=== PATIENT | female | born 1985 | race Caucasian/White ===

== ENCOUNTER 2016-04-12 00:48 | Inpatient (IN) | payer MEDICAID ==
[~2016-04-12] VITALS: Ht 152.4 cm; Wt 68.3 kg
[~2016-04-12 00:48] MED LIST: IBUP-1547 PO
[2016-04-12] MEDS ORDERED: MORPHINE SULFATE 4 MG/ML SYRINGE ONE (01:13)
[2016-04-12] MEDS ORDERED: ONDANSETRON HCL 4 MG/2 ML VIAL ONE (01:13)
[2016-04-12] MEDS ORDERED: ONDANSETRON HCL 4 MG/2 ML VIAL IVP ONE (01:15)
[2016-04-12] MEDS ORDERED: MORPHINE SULFATE 4 MG/ML SYRINGE IVP ONE ×2 (01:15→02:15)
[2016-04-12] MEDS ORDERED: SODIUM CHLORIDE 0.9% 1,000 ML IV ONE ×2 (01:15→02:30)
[2016-04-12 01:37] LABS: BASOPHILS # (AUTO) 0.03 K/uL (0.00-0.20); BASOPHILS % (AUTO) 0.3 % (0.0-2.0); EOSINOPHILS # (AUTO) 0.37 K/uL (0.00-0.70); HEMOGLOBIN 11.9 g/dL (12.0-16.0); LYMPHOCYTES # (AUTO) 1.6 K/uL (1.0-4.8); LYMPHOCYTES % (AUTO) 15.3 % (22.0-44.0); MEAN CORPUSCULAR HEMOGLOBIN 22.6 pg (26.0-34.0); MEAN CORPUSCULAR HGB CONC 32.3 G/dL (31.0-37.0); MEAN CORPUSCULAR VOLUME 70 fL (80-100); MONOCYTES # (AUTO) 0.4 K/uL (0.1-1.0); NEUTROPHILS % (AUTO) 76.8 % (40.0-70.0); PLATELET COUNT (AUTO) 260 K/uL (150-450); RED BLOOD CELL COUNT(AUTO) 5.28 MIL/uL (4.00-5.20); RED CELL DISTRIBUTION WIDTH 16.2 % (11.5-14.5); WHITE BLOOD COUNT (AUTO) 10.4 K/uL (4.5-11.0)
[2016-04-12 01:46] LABS: ANION GAP 13 mmol/L (8-16); CALCIUM, TOTAL 8.2 mg/dL (8.8-10.5); CARBON DIOXIDE 24 mmol/L (22-29); CHLORIDE 104 mmol/L (98-107); CREATININE 0.65 mg/dL (0.60-1.30); GLOMERULAR FILTR. RATE CALC > 60 mL/min (>60); POTASSIUM 3.5 mmol/L (3.5-5.1); SODIUM SERUM 141 mmol/L (136-145); UREA NITROGEN, BLOOD 8 mg/dL (7-18)
[2016-04-12 01:50] LABS: APPEARANCE,URINE CLEAR (CLEAR); GLUCOSE, URINE (UA) NEGATIVE (NEGATIVE); KETONES,URINE NEGATIVE (NEGATIVE); LEUKOCYTE ESTERASE ,URINE NEGATIVE (NEGATIVE); OCCULT BLOOD,URINE NEGATIVE (NEGATIVE); PH,URINE 6.5 (5.0-8.0); PROTEIN,URINE NEGATIVE (NEGATIVE)
[2016-04-12 01:52] LABS: ALANINE AMINOTRANSFERASE 19 U/L (12-78); ALBUMIN 3.9 g/dL (3.4-5.0); ASPARTATE AMINOTRANSFERASE 17 U/L (15-37); BILIRUBIN,TOTAL 0.3 mg/dL (0.1-1.0); TOTAL PROTEIN, SERUM 8.2 g/dL (6.4-8.2)
[2016-04-12 01:53] LABS: ADD UA MICROSCOPIC NO
[2016-04-12 02:02] LABS: RBC MORPHOLOGY COMMENT ABNORMAL RBC MORPH
[2016-04-12] MEDS ORDERED: IOVERSOL 350 MG/ML 100 ML VIAL ONE (02:15)
[2016-04-12] MEDS ORDERED: PANTOPRAZOLE SODIUM 40 MG/VIAL IVP ONE (02:15)
[2016-04-12] MEDS ORDERED: SODIUM CHLORIDE 0.9% 100 ML ONE (02:16)
[2016-04-12] MEDS ORDERED: DONNATAL/LIDOCAINE/MAALOX 55 ML BOTTLE PO ONE (02:30)
[2016-04-12] MEDS ORDERED: HYDROmorphone 2 MG/ML SYRINGE IVP ONE (02:30)
[2016-04-12 09:10] VITALS: BP 95/59
[2016-04-12] MEDS ORDERED: MECLIZINE HCL 12.5 MG TABLET PO PRN (10:30)
[2016-04-12] MEDS ORDERED: OxyCODONE HCL/ACETAMINOPHEN 5-325 MG TABLET PO PRN ×2 (11:30→12:00)
[2016-04-12] MEDS ORDERED: ACETAMINOPHEN 650 MG/20.3 ML SOLUTION UDCUP PO PRN (11:30)
[2016-04-12] MEDS ORDERED: SODIUM CHLORIDE 0.9% 250 ML IV ONE ×2 (11:30→18:30)
[2016-04-12 12:00] VITALS: BP 88/58
[2016-04-12] MEDS ORDERED: 0.9% SODIUM CHLORIDE 10 ML SYRINGE IVP PRN (12:00)
[2016-04-12] MEDS ORDERED: ONDANSETRON HCL 4 MG/2 ML VIAL IVP PRN (12:00)
[2016-04-12] MEDS ORDERED: ACETAMINOPHEN 325 MG TABLET PO PRN (12:15)
[2016-04-12] MEDS: DOCUSATE SODIUM 100 MG CAPSULE PO SCH ×2 (12:44→21:00)
[2016-04-12] MEDS: PANTOPRAZOLE SODIUM 40 MG/VIAL IVP SCH (12:45)
[2016-04-12 15:14] VITALS: BP 89/52
[2016-04-12] MEDS: SODIUM CHLORIDE 0.9% 1,000 ML IV SCH ×2 (15:21→21:26)
[2016-04-12] MEDS: OxyCODONE HCL/ACETAMINOPHEN 5-325 MG TABLET PO PRN (18:19)
[2016-04-12] MEDS ORDERED: INFLUENZA VIRUS VACCINE QVS 2016-17 (3YR+)/PF 60 MCG/0.5 ML SYRINGE IM ONE (18:45)
[2016-04-12] MEDS ORDERED: MEBROFENIN TC99M/MCL ISOTOPE 1 EA INJ INJ ONE (19:20)
[2016-04-12 20:44] VITALS: BP 100/55
[2016-04-12] MEDS ORDERED: SUMAtriptan SUCCINATE 6 MG/0.5 ML VIAL SQ PRN (21:15)
[2016-04-12 23:45] VITALS: BP 99/54
[2016-04-13 04:00] VITALS: BP 100/61
[2016-04-13] MEDS: SODIUM CHLORIDE 0.9% 1,000 ML IV SCH ×2 (06:11→21:00)
[2016-04-13 06:45] LABS: BASOPHILS % (AUTO) 0.5 % (0.0-2.0); HEMATOCRIT 30.3 % (36-46); HEMOGLOBIN 9.6 g/dL (12.0-16.0); LYMPHOCYTES # (AUTO) 2.2 K/uL (1.0-4.8); LYMPHOCYTES % (AUTO) 34.1 % (22.0-44.0); MEAN CORPUSCULAR HEMOGLOBIN 22.5 pg (26.0-34.0); MEAN CORPUSCULAR HGB CONC 31.7 G/dL (31.0-37.0); MEAN CORPUSCULAR VOLUME 71 fL (80-100); MONOCYTES # (AUTO) 0.5 K/uL (0.1-1.0); MONOCYTES % (AUTO) 7.7 % (2.0-9.0); NEUTROPHILS # (AUTO) 3.6 K/uL (1.8-7.7); NEUTROPHILS % (AUTO) 54.7 % (40.0-70.0); PLATELET COUNT (AUTO) 219 K/uL (150-450); RED BLOOD CELL COUNT(AUTO) 4.26 MIL/uL (4.00-5.20); RED CELL DISTRIBUTION WIDTH 15.5 % (11.5-14.5); WHITE BLOOD COUNT (AUTO) 6.6 K/uL (4.5-11.0)
[2016-04-13 06:51] LABS: ANION GAP 8 mmol/L (8-16); CARBON DIOXIDE 26 mmol/L (22-29); CHLORIDE 107 mmol/L (98-107); CREATININE 0.69 mg/dL (0.60-1.30); GLOMERULAR FILTR. RATE CALC > 60 mL/min (>60); POTASSIUM 3.2 mmol/L (3.5-5.1); SODIUM SERUM 141 mmol/L (136-145); UREA NITROGEN, BLOOD 7 mg/dL (7-18)
[2016-04-13 07:29] LABS: RBC MORPHOLOGY COMMENT ABNORMAL RBC MORPH
[2016-04-13 08:06] VITALS: BP 98/60
[2016-04-13] MEDS: DOCUSATE SODIUM 100 MG CAPSULE PO SCH ×2 (09:00→21:16)
[2016-04-13] MEDS: PANTOPRAZOLE SODIUM 40 MG/VIAL IVP SCH (09:05)
[2016-04-13] MEDS ORDERED: SODIUM CHLORIDE 0.9% 1,000 ML IV ONE ×2 (11:49→12:00)
[2016-04-13 11:59] VITALS: BP 100/62
[2016-04-13] MEDS ORDERED: MEPERIDINE-PF 25 MG/ML SYRINGE IVP PRN (13:45)
[2016-04-13] MEDS ORDERED: FentaNYL CITRATE-PF 100 MCG/2 ML VIAL IVP PRN (13:45)
[2016-04-13] MEDS ORDERED: HYDROmorphone 2 MG/ML SYRINGE IVP PRN (13:45)
[2016-04-13 16:00] VITALS: BP 103/71
[2016-04-13 20:37] VITALS: BP 100/59
[2016-04-13] MEDS: OxyCODONE HCL/ACETAMINOPHEN 5-325 MG TABLET PO PRN (21:16)
[2016-04-14 00:15] VITALS: BP 92/50
[2016-04-14 04:00] VITALS: BP 93/55
[2016-04-14 08:00] VITALS: BP 100/73
[2016-04-14] MEDS: PANTOPRAZOLE SODIUM 40 MG/VIAL IVP SCH (09:14)
[2016-04-14] MEDS: DOCUSATE SODIUM 100 MG CAPSULE PO SCH (09:14)
[2016-04-14 12:00] VITALS: BP 90/53
[2016-04-14] MEDS ORDERED: PANT40TA25 PO (12:35)
[2016-04-14] MEDS ORDERED: ONDA4 PO (12:36)
[2016-04-14] MEDS ORDERED: MECL12.585 PO (12:36)
[2016-04-14] MEDS ORDERED: INFLUENZA VIRUS VACCINE QVS 2016-17 (3YR+)/PF 60 MCG/0.5 ML SYRINGE IM ONE (13:15)
[2016-04-14] MEDS ORDERED: PROPOFOL 1% 20 ML VIAL IVP ONE (13:49)
[2016-04-14] MEDS ORDERED: LIDOCAINE HCL/PF 2% 5 ML VIAL INJ ONE (13:49)
[2016-04-14] MEDS ORDERED: 0.9% SODIUM CHLORIDE 10 ML VIAL IV ONE (13:49)
== END 2016-04-14 13:50 | disposition home or self-care (01) | DRG 241 ==
LOC: EMS 00:51 → MERGE 05:45 → 6N 05:45
PROVIDERS: ADMIT Internal Medicine; ATTEND Internal Medicine
PROC: 0DB68ZX Excision of Stomach, Via Natural or Artificial Opening Endoscopic, Diagnostic (ICD-10-PCS; principal; 2016-04-13 13:00)
PROC: 3E0234Z Introduction of Serum, Toxoid and Vaccine into Muscle, Percutaneous Approach (ICD-10-PCS; 2016-04-14)
DX: K29.70 Gastritis, unspecified, without bleeding (principal); K83.8 Other specified diseases of biliary tract; D64.9 Anemia, unspecified; R10.9 Unspecified abdominal pain; K21.9 Gastro-esophageal reflux disease without esophagitis; Z98.890 Other specified postprocedural states; Z98.51 Tubal ligation status; Z23 Encounter for immunization
CPT/HCPCS: 74177; 76705; 78226; 88305; 88312; 90471; 96374; 96375; 96376; 99285; A9537; C9113; J1170; J2270; J2405; J2704; J3490; J7030; J7050

== ENCOUNTER 2016-07-25 07:41 | Inpatient (IN) | payer MEDICAID ==
[~2016-07-25] VITALS: Ht 160 cm; Wt 81.8 kg
[~2016-07-25 07:41] MED LIST changes: +MECL12.585 PO; +ONDA4 PO; +PANT40TA25 PO
[2016-07-25 08:05] LABS: BASOPHILS # (AUTO) 0.06 K/uL (0.00-0.20); BASOPHILS % (AUTO) 0.3 % (0.0-2.0); EOSINOPHILS # (AUTO) 0.19 K/uL (0.00-0.70); EOSINOPHILS % (AUTO) 0.98 % (1.0-6.0); HEMATOCRIT 35.9 % (36-46); HEMOGLOBIN 11.1 g/dL (12.0-16.0); LYMPHOCYTES # (AUTO) 1.8 K/uL (1.0-4.8); LYMPHOCYTES % (AUTO) 9.4 % (22.0-44.0); MEAN CORPUSCULAR HEMOGLOBIN 21.4 pg (26.0-34.0); MEAN CORPUSCULAR VOLUME 69 fL (80-100); MONOCYTES # (AUTO) 0.7 K/uL (0.1-1.0); MONOCYTES % (AUTO) 3.6 % (2.0-9.0); NEUTROPHILS # (AUTO) 16.5 K/uL (1.8-7.7); NEUTROPHILS % (AUTO) 85.7 % (40.0-70.0); PLATELET COUNT (AUTO) 284 K/uL (150-450); RBC MORPHOLOGY COMMENT ABNORMAL RBC MORPH; RED BLOOD CELL COUNT(AUTO) 5.21 MIL/uL (4.00-5.20); RED CELL DISTRIBUTION WIDTH 15.8 % (11.5-14.5); WHITE BLOOD COUNT (AUTO) 19.2 K/uL (4.5-11.0)
[2016-07-25 08:11] LABS: ANION GAP 11 mmol/L (8-16); CALCIUM, TOTAL 8.8 mg/dL (8.8-10.5); CARBON DIOXIDE 23 mmol/L (22-29); CHLORIDE 100 mmol/L (98-107); CREATININE 0.64 mg/dL (0.60-1.30); GLOMERULAR FILTR. RATE CALC > 60 mL/min (>60); POTASSIUM 3.5 mmol/L (3.5-5.1); SODIUM SERUM 134 mmol/L (136-145); UREA NITROGEN, BLOOD 10 mg/dL (7-18)
[2016-07-25] MEDS ORDERED: MORPHINE SULFATE 2 MG/ML SYRINGE IVP ONE (08:15)
[2016-07-25] MEDS ORDERED: ONDANSETRON HCL 4 MG/2 ML VIAL IVP ONE (08:15)
[2016-07-25 08:17] LABS: ALANINE AMINOTRANSFERASE 72 U/L (12-78); ALBUMIN 4.1 g/dL (3.4-5.0); ASPARTATE AMINOTRANSFERASE 31 U/L (15-37); BILIRUBIN,TOTAL 0.3 mg/dL (0.1-1.0); TOTAL PROTEIN, SERUM 8.4 g/dL (6.4-8.2)
[2016-07-25] MEDS ORDERED: BARIUM SULFATE 0.1% SUSPENSION 450 ML BOTTLE PO ONE (08:30)
[2016-07-25] MEDS ORDERED: IOVERSOL 350 MG/ML 100 ML VIAL ONE (09:12)
[2016-07-25] MEDS ORDERED: SODIUM CHLORIDE 0.9% 100 ML ONE (09:13)
[2016-07-25 10:13] LABS: APPEARANCE,URINE CLEAR (CLEAR); GLUCOSE, URINE (UA) NEGATIVE (NEGATIVE); KETONES,URINE NEGATIVE (NEGATIVE); LEUKOCYTE ESTERASE ,URINE NEGATIVE (NEGATIVE); OCCULT BLOOD,URINE NEGATIVE (NEGATIVE); PROTEIN,URINE NEGATIVE (NEGATIVE)
[2016-07-25 10:14] LABS: ADD UA MICROSCOPIC NO
[2016-07-25] MEDS ORDERED: HYDROmorphone 2 MG/ML SYRINGE IVP ONE (11:15)
[2016-07-25] MEDS ORDERED: SODIUM CHLORIDE 0.9% 1,000 ML IV ONE ×3 (11:15→13:26)
[2016-07-25] MEDS ORDERED: PIPERACILLIN/TAZO 3.375 GM/D5W 50 ML IV ONE (11:15)
[2016-07-25] MEDS ORDERED: PROMETHAZINE HCL 25 MG/ML VIAL IM ONE (11:15)
[2016-07-25] MEDS ORDERED: ZOLPIDEM TARTRATE 5 MG TABLET PO PRN (11:30)
[2016-07-25] MEDS ORDERED: MAGNESIUM HYDROXIDE SUSPENSION 30 ML UDCUP PO PRN (11:30)
[2016-07-25] MEDS ORDERED: MORPHINE SULFATE 2 MG/ML SYRINGE IVP PRN (11:30)
[2016-07-25] MEDS ORDERED: BISACODYL 10 MG RECTAL RECTAL SUPPOSITORY PR PRN (11:30)
[2016-07-25] MEDS ORDERED: HYDROCODONE/ACETAMINOPHEN 5-325 MG TABLET PO PRN (11:30)
[2016-07-25] MEDS ORDERED: CIPROFLOXACIN 400 MG/D5% WATER 200 ML IV ONE (11:30)
[2016-07-25] MEDS ORDERED: ACETAMINOPHEN 325 MG TABLET PO PRN (11:30)
[2016-07-25] MEDS ORDERED: ONDANSETRON HCL 4 MG/2 ML VIAL IVP PRN (11:30)
[2016-07-25] MEDS ORDERED: MetroNIDAZOLE 500 MG/NACL 100 ML IV SCH (13:00)
[2016-07-25 13:10] VITALS: BP 127/68
[2016-07-25] MEDS ORDERED: RINGERS SOLUTION,LACTATED 1,000 ML IV ONE ×4 (13:20→16:28)
[2016-07-25] MEDS ORDERED: BUPIVACAINE 0.25%/EPI 1:200,000/PF 10 ML VIAL ONE (13:26)
[2016-07-25] MEDS ORDERED: ACETAMINOPHEN 1000 MG/ISO-OSM 100 ML IV ONE (15:03)
[2016-07-25] MEDS ORDERED: HEPARIN SODIUM,PORCINE 5,000 UNITS/ML VIAL SQ SCH (16:00)
[2016-07-25] MEDS ORDERED: RINGERS SOLUTION,LACTATED 500 ML IV SCH (16:00)
[2016-07-25] MEDS ORDERED: RINGERS SOLUTION,LACTATED 500 ML IV ONE (16:30)
[2016-07-25 17:25] VITALS: BP 98/62
[2016-07-25 18:06] VITALS: BP 102/66
[2016-07-25 19:48] VITALS: BP 91/47
[2016-07-25] MEDS ORDERED: DOCUSATE SODIUM 100 MG CAPSULE PO SCH (21:00)
[2016-07-25] MEDS ORDERED: DOCU-119 PO (21:41)
[2016-07-25] MEDS ORDERED: HYDR-309 PO ×2 (21:44→21:45)
[2016-07-25] MEDS ORDERED: KETOROLAC TROMETHAMINE 60 MG/2 ML VIAL IM ONE (22:54)
[2016-07-25] MEDS ORDERED: FentaNYL CITRATE-PF 100 MCG/2 ML VIAL IVP ONE (22:54)
[2016-07-25] MEDS ORDERED: DEXAMETHASONE SOD PHOS 4 MG/ML VIAL IVP ONE (22:54)
[2016-07-25] MEDS ORDERED: PROPOFOL 1% 20 ML VIAL IVP ONE (22:54)
[2016-07-25] MEDS ORDERED: SUCCINYLCHOLINE CHLORIDE 20 MG/ML 10 ML VIAL IVP ONE (22:54)
[2016-07-25] MEDS ORDERED: MIDAZOLAM HCL 2 MG/2 ML VIAL IVP ONE (22:54)
[2016-07-25] MEDS ORDERED: LIDOCAINE HCL/PF 2% 5 ML VIAL INJ ONE (22:54)
[2016-07-26] MEDS ORDERED: PANTOPRAZOLE SODIUM 40 MG DR TABLET PO SCH (09:00)
== END 2016-07-25 22:55 | disposition home or self-care (01) | DRG 710 ==
LOC: EMS 07:43 → 6N 11:37
PROVIDERS: ADMIT Internal Medicine; ATTEND Internal Medicine
PROC: 0W9G4ZZ Drainage of Peritoneal Cavity, Percutaneous Endoscopic Approach (ICD-10-PCS; 2016-07-25)
PROC: 0DTJ4ZZ Resection of Appendix, Percutaneous Endoscopic Approach (ICD-10-PCS; principal; 2016-07-25 15:00)
DX: A41.9 Sepsis, unspecified organism (principal); R18.8 Other ascites; K35.80 Unspecified acute appendicitis; F41.9 Anxiety disorder, unspecified; I71.4 Abdominal aortic aneurysm, without rupture; Z79.891 Long term (current) use of opiate analgesic; Z79.1 Long term (current) use of non-steroidal anti-inflammatories (NSAID); Z79.899 Other long term (current) drug therapy; Z98.51 Tubal ligation status; Z98.891 History of uterine scar from previous surgery
CPT/HCPCS: 74177; 88304; 93005; 96365; 99285; J0131; J0330; J0690; J0744; J1100; J1170; J1644; J1885; J2250; J2270; J2405; J2543; J2550; J2704; J3010; J3490; J7030; J7050; J7120

== ENCOUNTER 2016-08-11 14:26 | Emergency (ER) | payer MEDICAID ==
[~2016-08-11] VITALS: Ht 157.5 cm; Wt 77.0 kg
[~2016-08-11 14:26] MED LIST changes: +DOCU-119 PO; +HYDR-309 PO
[2016-08-11 16:16] LABS: APPEARANCE,URINE CLOUDY (CLEAR); GLUCOSE, URINE (UA) NEGATIVE (NEGATIVE); KETONES,URINE NEGATIVE (NEGATIVE); LEUKOCYTE ESTERASE ,URINE MODERATE (NEGATIVE); OCCULT BLOOD,URINE SMALL (NEGATIVE); PH,URINE 7.5 (5.0-8.0); PROTEIN,URINE NEGATIVE (NEGATIVE)
[2016-08-11 16:24] LABS: ADD UA MICROSCOPIC YES
[2016-08-11 16:25] LABS: SQUAMOUS EPITHELIAL CELL,UR Few /LPF (None Seen)
[2016-08-11] MEDS ORDERED: HYDROCODONE/ACETAMINOPHEN 5-325 MG TABLET PO ONE (16:45)
[2016-08-11] MEDS ORDERED: CIPROFLOXACIN HCL 250 MG TABLET PO ONE (16:45)
[2016-08-11] MEDS ORDERED: PHENAZOPYRIDINE HCL 100 MG TABLET PO ONE (16:45)
[2016-08-11 17:23] VITALS: BP 118/70
== END 2016-08-11 17:24 | disposition home or self-care (01) ==
LOC: EMS 14:29
DX: N39.0 Urinary tract infection, site not specified (principal)
CPT/HCPCS: 87086; 99284

== ENCOUNTER 2016-10-12 09:01 | Emergency (ER) | payer MEDICAID ==
[~2016-10-12] VITALS: Ht 152.4 cm; Wt 67.0 kg
[2016-10-12] MEDS ORDERED: IBUPROFEN 600 MG TABLET PO ONE (09:45)
[2016-10-12 10:35] VITALS: BP 109/64
== END 2016-10-12 11:34 | disposition home or self-care (01) ==
LOC: EMS 09:10
DX: S02.2XXA Fracture of nasal bones, initial encounter for closed fracture (principal); S16.1XXA Strain of muscle, fascia and tendon at neck level, initial encounter; R45.6 Violent behavior; F41.9 Anxiety disorder, unspecified; Y04.0XXA Assault by unarmed brawl or fight, initial encounter; Y93.89 Activity, other specified; Y92.89 Other specified places as the place of occurrence of the external cause; Y99.8 Other external cause status
CPT/HCPCS: 70450; 72125; 99284

== ENCOUNTER 2017-04-17 20:22 | Emergency (ER) | payer MEDICAID ==
[~2017-04-17] VITALS: Ht 160 cm; Wt 65.9 kg
[2017-04-17 21:25] LABS: APPEARANCE,URINE CLEAR (CLEAR); BILIRUBIN,URINE NEGATIVE (NEGATIVE); GLUCOSE, URINE (UA) NEGATIVE (NEGATIVE); KETONES,URINE NEGATIVE (NEGATIVE); LEUKOCYTE ESTERASE ,URINE NEGATIVE (NEGATIVE); NITRATE,URINE NEGATIVE (NEGATIVE); OCCULT BLOOD,URINE NEGATIVE (NEGATIVE); PROTEIN,URINE NEGATIVE (NEGATIVE); UROBILINOGEN,URINE 0.2 mg/dL (<=1.0)
[2017-04-17 21:54] LABS: BACTERIA,URINE None Seen /HPF (None Seen); RBC,URINE 0-2 /HPF (0-2); SQUAMOUS EPITHELIAL CELL,UR Moderate /LPF (None Seen); WBC,URINE 0-2 /HPF (0-5)
[2017-04-17] MEDS ORDERED: IPRATROPIUM BROMIDE 0.5 MG/2.5 ML NEB SOLUTION NEB ONE ×2 (22:55→23:00)
[2017-04-17] MEDS ORDERED: ALBUTEROL SULFATE 2.5 MG/0.5 ML NEB SOLUTION NEB ONE (22:55)
[2017-04-17] MEDS ORDERED: ALBUTEROL SULFATE 5 MG/ML 20 ML NEB SOLN [BULK] NEB ONE (23:00)
[2017-04-17] MEDS ORDERED: DEXAMETHASONE SOD PHOS 4 MG/ML 5 ML VIAL IM ONE (23:00)
[2017-04-18 00:23] VITALS: BP 105/58
== END 2017-04-18 00:24 | disposition home or self-care (01) ==
LOC: EMS 20:26
DX: J45.909 Unspecified asthma, uncomplicated (principal)
CPT/HCPCS: 71045; 81001; 84703; 94640; 96372; 99285; J1100; J7611; J7613

== ENCOUNTER 2017-05-23 16:25 | Emergency (ER) | payer MEDICAID ==
[~2017-05-23] VITALS: Ht 170.2 cm; Wt 67.3 kg
[2017-05-23 16:33] VITALS: BP 104/72
[2017-05-23 16:45] LABS: APPEARANCE,URINE CLOUDY (CLEAR); BILIRUBIN,URINE NEGATIVE (NEGATIVE); GLUCOSE, URINE (UA) NEGATIVE (NEGATIVE); KETONES,URINE NEGATIVE (NEGATIVE); LEUKOCYTE ESTERASE ,URINE LARGE (NEGATIVE); NITRATE,URINE NEGATIVE (NEGATIVE); OCCULT BLOOD,URINE MODERATE (NEGATIVE); PH,URINE 7.5 (5.0-8.0); PROTEIN,URINE NEGATIVE (NEGATIVE); UROBILINOGEN,URINE 0.2 mg/dL (<=1.0)
[2017-05-23 16:47] LABS: BACTERIA,URINE Few /HPF (None Seen); SQUAMOUS EPITHELIAL CELL,UR Few /LPF (None Seen); WBC,URINE 51-100 /HPF (0-5)
== END 2017-05-23 17:49 | disposition home or self-care (01) ==
LOC: EMS 16:26
DX: N39.0 Urinary tract infection, site not specified (principal)
CPT/HCPCS: 87086; 99284

== ENCOUNTER 2017-10-30 10:16 | Emergency (ER) | payer MEDICAID ==
[~2017-10-30] VITALS: Ht 157.5 cm; Wt 85.0 kg
[2017-10-30] MEDS ORDERED: IBUPROFEN 600 MG TABLET PO ONE (11:00)
[2017-10-30 11:21] LABS: BASOPHILS % (AUTO) 0.7 % (0.0-2.0); EOSINOPHILS % (AUTO) 3.1 % (1.0-6.0); HEMATOCRIT 31.3 % (36-46); HEMOGLOBIN 9.8 g/dL (12.0-16.0); LYMPHOCYTES % (AUTO) 21.4 % (22.0-44.0); MEAN CORPUSCULAR HEMOGLOBIN 19.7 pg (26.0-34.0); MEAN CORPUSCULAR HGB CONC 31.4 G/dL (31.0-37.0); MEAN CORPUSCULAR VOLUME 63 fL (80-100); MONOCYTES # (AUTO) 0.6 K/uL (0.1-1.0); MONOCYTES % (AUTO) 6.9 % (2.0-9.0); NEUTROPHILS # (AUTO) 6.4 K/uL (1.8-7.7); NEUTROPHILS % (AUTO) 67.9 % (40.0-70.0); PLATELET COUNT (AUTO) 308 K/uL (150-450); RED BLOOD CELL COUNT(AUTO) 4.97 MIL/uL (4.00-5.20)
[2017-10-30 11:29] LABS: ANION GAP 7 mmol/L (8-16); CALCIUM, TOTAL 8.3 mg/dL (8.8-10.5); CARBON DIOXIDE 30 mmol/L (22-29); CHLORIDE 106 mmol/L (98-107); GLOMERULAR FILTR. RATE CALC > 60 mL/min (>60); GLUCOSE,RANDOM 113 mg/dL (70-110); POTASSIUM 3.6 mmol/L (3.5-5.1); SODIUM SERUM 143 mmol/L (136-145); UREA NITROGEN, BLOOD 6 mg/dL (7-18)
[2017-10-30 12:50] VITALS: BP 129/35
== END 2017-10-30 12:59 | disposition home or self-care (01) ==
LOC: EMS 10:17
DX: G44.209 Tension-type headache, unspecified, not intractable (principal); M79.602 Pain in left arm; F41.9 Anxiety disorder, unspecified; Z90.49 Acquired absence of other specified parts of digestive tract
CPT/HCPCS: 93005; 99285

== ENCOUNTER 2018-06-28 22:24 | Emergency (ER) | payer MEDICAID ==
[~2018-06-28] VITALS: Ht 154.9 cm; Wt 82.3 kg
[2018-06-28] MEDS ORDERED: OMEP20 PO (22:30)
[2018-06-29] MEDS ORDERED: PB/HYOSCY/ATR/SCOP/LIDO/MAALOX 55 ML BOTTLE PO ONE
[2018-06-29] MEDS ORDERED: ONDANSETRON HCL 4 MG TABLET PO ONE
[2018-06-29 00:09] LABS: BASOPHILS % (AUTO) 0.7 % (0.0-2.0); EOSINOPHILS % (AUTO) 2.3 % (1.0-6.0); HEMATOCRIT 28.2 % (36-46); HEMOGLOBIN 8.9 g/dL (12.0-16.0); LYMPHOCYTES # (AUTO) 3.1 K/uL (1.0-4.8); MEAN CORPUSCULAR HEMOGLOBIN 19.9 pg (26.0-34.0); MEAN CORPUSCULAR HGB CONC 31.7 G/dL (31.0-37.0); MEAN CORPUSCULAR VOLUME 63 fL (80-100); MONOCYTES # (AUTO) 0.6 K/uL (0.1-1.0); NEUTROPHILS # (AUTO) 4.7 K/uL (1.8-7.7); PLATELET COUNT (AUTO) 301 K/uL (150-450); RED BLOOD CELL COUNT(AUTO) 4.48 MIL/uL (4.00-5.20); RED CELL DISTRIBUTION WIDTH 17.3 % (11.5-14.5)
[2018-06-29 00:19] LABS: ANION GAP 5 mmol/L (8-16); CALCIUM, TOTAL 8.4 mg/dL (8.8-10.5); CARBON DIOXIDE 30 mmol/L (22-29); CHLORIDE 105 mmol/L (98-107); CREATININE 0.67 mg/dL (0.60-1.30); GLOMERULAR FILTR. RATE CALC > 60 mL/min (>60); GLUCOSE,RANDOM 100 mg/dL (70-110); POTASSIUM 4.2 mmol/L (3.5-5.1); SODIUM SERUM 140 mmol/L (136-145); UREA NITROGEN, BLOOD 9 mg/dL (7-18)
[2018-06-29 00:27] LABS: APPEARANCE,URINE CLOUDY (CLEAR); BILIRUBIN,URINE NEGATIVE (NEGATIVE); GLUCOSE, URINE (UA) NEGATIVE (NEGATIVE); KETONES,URINE NEGATIVE (NEGATIVE); LEUKOCYTE ESTERASE ,URINE SMALL (NEGATIVE); NITRATE,URINE NEGATIVE (NEGATIVE); OCCULT BLOOD,URINE MODERATE (NEGATIVE); PH,URINE 6.5 (5.0-8.0); PROTEIN,URINE NEGATIVE (NEGATIVE); UROBILINOGEN,URINE 0.2 mg/dL (<=1.0)
[2018-06-29 00:29] LABS: ALANINE AMINOTRANSFERASE 17 U/L (12-78); ALBUMIN 3.3 g/dL (3.4-5.0); ALKALINE PHOSPHATASE 90 U/L (46-116); ASPARTATE AMINOTRANSFERASE 14 U/L (15-37); BILIRUBIN,TOTAL 0.1 mg/dL (0.1-1.0); HCG,QUANTITATIVE < 1 mIU/mL (0-6); LIPASE 187 U/L (73-393); TOTAL PROTEIN, SERUM 7.1 g/dL (6.4-8.2)
[2018-06-29 00:36] LABS: BACTERIA,URINE None Seen /HPF (None Seen); SQUAMOUS EPITHELIAL CELL,UR Many /LPF (None Seen); YEAST,URINE Few /HPF (None Seen)
[2018-06-29 01:30] VITALS: BP 111/70
[2018-06-29] MEDS ORDERED: CEPHALEXIN MONOHYDRATE 500 MG CAPSULE PO ONE (01:30)
== END 2018-06-29 01:42 | disposition home or self-care (01) ==
LOC: EMS 22:25
DX: K29.70 Gastritis, unspecified, without bleeding (principal); N39.0 Urinary tract infection, site not specified; D64.9 Anemia, unspecified; F41.9 Anxiety disorder, unspecified
CPT/HCPCS: 36415; 76705; 80053; 81001; 83690; 84702; 85025; 87086; 99284; Q0162

== ENCOUNTER 2019-01-07 18:37 | Emergency (ER) | payer MEDICAID ==
[~2019-01-07] VITALS: Ht 157.5 cm; Wt 81.8 kg
[~2019-01-07 18:37] MED LIST changes: -DOCU-119 PO; -HYDR-309 PO; -IBUP-1547 PO; -MECL12.585 PO; +OMEP20 PO; -ONDA4 PO; -PANT40TA25 PO
[2019-01-07 18:56] VITALS: BP 127/76
[2019-01-07] MEDS ORDERED: PHENAZOPYRIDINE HCL 100 MG TABLET PO ONE (19:15)
[2019-01-07 19:17] LABS: APPEARANCE,URINE CLEAR (CLEAR); BILIRUBIN,URINE NEGATIVE (NEGATIVE); GLUCOSE, URINE (UA) NEGATIVE (NEGATIVE); KETONES,URINE TRACE mg/dL (NEGATIVE); LEUKOCYTE ESTERASE ,URINE LARGE (NEGATIVE); NITRATE,URINE POSITIVE (NEGATIVE); OCCULT BLOOD,URINE NEGATIVE (NEGATIVE); PH,URINE 6.5 (5.0-8.0); PROTEIN,URINE NEGATIVE (NEGATIVE)
[2019-01-07 19:25] LABS: BACTERIA,URINE Moderate /HPF (None Seen); RBC,URINE None Seen /HPF (0-2)
[2019-01-07 19:26] LABS: SQUAMOUS EPITHELIAL CELL,UR Moderate /LPF (None Seen); WBC,URINE 26-50 /HPF (0-5)
== END 2019-01-07 19:30 | disposition home or self-care (01) ==
LOC: EMS 18:38
DX: N39.0 Urinary tract infection, site not specified (principal); F41.9 Anxiety disorder, unspecified
CPT/HCPCS: 87086